=== PATIENT | male | born 1955 | race Caucasian/White ===

== ENCOUNTER 2024-08-07 18:50 | Inpatient (IN) | payer MEDICARE, MEDICAID ==
[~2024-08-07] VITALS: Ht 167.6 cm; Wt 87.0 kg
[2024-08-07 19:22] LABS: Basophils # (auto) 0 10 ^3/uL (0-0.2); Basophils % (auto) 0.6 % (0.0-2.0); Eosinophils # (auto) 0.6 10 ^3/uL (0-0.8); Eosinophils % (auto) 8.2 % (0.0-7.0); Hematocrit 47.7 % (41.0-53.0); Hemoglobin 16.1 g/dL (13.5-17.5); Lymphocytes # (auto) 2.5 10 ^3/uL (0.4-5.4); Lymphocytes % (auto) 36.8 % (10.0-50.0); Mean Corpuscular Hemoglobin 28.9 pg (28.0-32.0); Mean Corpuscular Hgb Conc. 33.9 g/dL (32.0-36.0); Mean Corpuscular Volume 85.3 fL (80.0-100.0); Monocytes # (auto) 0.6 10 ^3/uL (0-1.3); Monocytes % (auto) 9.1 % (0.0-12.0); Neutrophils # (auto) 3.1 10 ^3/uL (1.6-8.6); Neutrophils % (auto) 45.3 % (37.0-80.0); Nucleated Red Blood Cells % 0.1 %; Platelet Count (auto) 283 10^3/uL (140-450); Red Blood Cells 5.59 10^6/uL (4.5-5.90); Red Cell Distribution Width 13.2 % (11.8-14.3); White Blood Cell 6.8 10^3/uL (4.4-10.8)
--- NOTE | 2024-08-07 19:34 | DVH ---
CHEST RADIOGRAPH Indication: CHEST PAIN Technique: Single frontal view of the chest was obtained Comparison: None FINDINGS: Lines and Tubes: None Lungs: Clear Pleura: No effusion. No pneumothorax. Cardiomediastinal contours: Unremarkable Bones: Unremarkable IMPRESSION: 1. Clear lungs.
[2024-08-07 19:36] LABS: Albumin 4.8 g/dL (3.2-4.8); Alkaline Phosphatase 102 U/L (46-116); Anion Gap 6 (5-15); Aspartate Aminotransferase 25 U/L (13-40); BUN/Creatinine Ratio 14.8 (10.0-20.0); Blood Urea Nitrogen 13 mg/dL (9-23); Carbon Dioxide 30 mmol/L (20-31); Chloride 102 mmol/L (98-107); Sodium 138 mmol/L (136-145)
[2024-08-07 19:37] LABS: Bilirubin, Total 0.5 mg/dL (0.2-1.0); Total Protein 7.3 g/dL (5.7-8.2)
[2024-08-07 19:47] LABS: Alanine Aminotransferase 46 U/L (7-40); Calcium 10.5 mg/dL (8.7-10.4); Glucose 119 mg/dL (74-106)
--- NOTE | 2024-08-07 20:30 | ED.PDOC ---
HPI Comments 69-year-old male with a history of hypertension, diabetes and dyslipidemia presents to ER for chest pain. Patient states for the past few hours he has been having intermittent episodes of retrosternal chest pain, described as squeezing, unprovoked, non radiating associated with nausea. Denies any vomiting, shortness of breath. Patient denies any chest pain the time of my evaluation. Blood pressure upon arrival was 167/96 mmHg. Chief Complaint: Chest Pain Time Seen by MD: 20:29 Reviewed Notes: Nurses Notes Information Source: Patient Mode of Arrival: Ambulatory Severity: Moderate Timing: Hours Duration: Intermittent Prehospital treatment: None Location: Substernal Radiation: No Radiation Quality: Squeezing Onset: With Light Exertion Cardiac Risk Factors: Hyperlipidemia, HTN, Diabetes PE Risk Factors: None History of: None Modifying Factors: Nothing Associated Signs and Symptoms: N/V Past Medical History PAST MEDICAL HISTORY: DM, High Lipids, HTN, PUD Surgical History: Cholecystectomy Family History Family History: Reviewed,noncontributory to illness Social History Smoker: Non-Smoker Alcohol: Denies ETOH Use Drugs: Denies Drug Use Lives In: Home Constitutional: denies: chills, diaphoresis, fatigue, fever, malaise, sweats, weakness, others EENTM: denies: blurred vision, double vision, ear bleeding, ear discharge, ear drainage, ear pain, ear ringing, eye pain, eye redness, hearing loss, mouth pain, mouth swelling, nasal discharge, nose bleeding, nose congestion, nose pain, photophobia, tearing, throat pain, throat swelling, voice changes, others Respiratory: denies: cough, hemoptysis, orthopnea, SOB at rest, shortness of breath, SOB with excertion, stridor, wheezing, others Cardiovascular: reports: chest pain; denies: dizzy spells, diaphoresis, Dyspnea on exertion, edema, irregular heart beat, left arm pain, lightheadedness, palpitations, PND, syncope, others Gastrointestinal: reports: nausea; denies: abdomen distended, abdominal pain, blood streaked bowels, constipated, diarrhea, dysphagia, difficulty swallowing, hematemesis, melena, poor appetite, poor fluid intake, rectal bleeding, rectal pain, vomiting, others Genitourinary: denies: burning, dysuria, flank pain, frequency, hematuria, incontinence, penile discharge, penile sore, pain, testicle pain, testicle swelling, urgency, others Neurological: denies: dizziness, fainting, headache, left sided numbness, left sided weakness, numbness, paresthesia, pre-existing deficit, right sided numbness, right sided weakness, seizure, speech problems, tingling, tremors, weakness, others Musculoskeletal: denies: back pain, gout, joint pain, joint swelling, muscle pain, muscle stiffness, neck pain, others Integumetry: denies: bruises, change in color, change in hair/nails, dryness, laceration, lesions, lumps, rash, wounds, others Allergic/Immunocompromised: denies: Difficulty Healing, Frequent Infections, Hives, Itching, others Hematologic/Lymphatic: denies: anemia, blood clots, easy bleeding, easy bruising, swollen glands, others Endocrine: denies: excessive hunger, excessive sweating, excessive thirst, excessive urination, flushing, intolerance to cold, intolerance to heat, unexp lained weight gain, unexplained weight loss, others Psychiatric: denies: anxiety, bipolar disorder, depression, hopeless, panic disorder, schizophrenia, sleepless, suicidal, others Physical Exam General Appearance: No Apparent Distress HEENT: Other (Unremarkable) Neck: Full Range of Motion, Normal Inspection Respiratory: Lungs Clear, No Accessory Muscle Use, No Respiratory Distress, Normal Breath Sounds Cardiovascular: No Edema, No JVD, Regular Rate/Rhythm Breast Exam: Deferred Gastrointestinal: Non Tender, Soft Genitalia: Deferred Pelvic: Deferred Rectal: Deferred Extremities: Normal inspection, Normal range of motion, Non-tender, No pedal edema Neurologic: Alert (Oriented x4), Normal Affect, Normal Mood, Other (Ambulatory without difficulty. 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 Was a procedure done?: No CP Differential Dx Differential Diagnosis: Angina, Anxiety / Panic Attack, MS, Pulmonary Embolus Differential Diagnosis: HTN Essential Differential Diagnosis: Angina, Chest Wall Pain, Costochondritis, Esophageal reflux/spasm, Gastritis, Myocardial Infarction, Pneumonia X-Ray, Labs, Meds, VS Vital Signs Date Time Temp Pulse Resp B/P (MAP) Pulse Ox O2 Delivery O2 Flow Rate FiO2 08/07/24 19:56 74 08/07/24 19:04 98.3 86 16 167/96 (119) 96 08/07/24 18:55 82 Lab Test 08/07/24 21:42 08/07/24 19:41 08/07/24 19:00 Range/Units Troponin I High Sensitivity < 3 L < 3 L < 3 L </=54 ng/L White Blood Count 6.8 4.4-10.8 10^3/uL Red Blood Count 5.59 4.5-5.90 10^6/uL Hemoglobin 16.1 13.5-17.5 g/dL Hematocrit 47.7 41.0-53.0 % Mean Corpuscular Volume 85.3 80.0-100.0 fL Mean Corpuscular Hemoglobin 28.9 28.0-32.0 pg Mean Corpuscular Hemoglobin Concent 33.9 32.0-36.0 g/dL Red Cell Distribution Width 13.2 11.8-14.3 % Platelet Count 283 140-450 10^3/uL Mean Platelet Volume 7.7 6.9-10.8 fL Neutrophils (%) (Auto) 45.3 37.0-80.0 % Lymphocytes (%) (Auto) 36.8 10.0-50.0 % Monocytes (%) (Auto) 9.1 0.0-12.0 % Eosinophils (%) (Auto) 8.2 H 0.0-7.0 % Basophils (%) (Auto) 0.6 0.0-2.0 % Neutrophils # (Auto) 3.1 1.6-8.6 10 ^3/uL Lymphocytes # (Auto) 2.5 0.4-5.4 10 ^3/uL Monocytes # (Auto) 0.6 0-1.3 10 ^3/uL Eosinophils # (Auto) 0.6 0-0.8 10 ^3/uL Basophils # (Auto) 0 0-0.2 10 ^3/uL Nucleated Red Blood Cells 0.1 % Sodium Level 138 136-145 mmol/L Potassium Level 4.0 3.5-5.1 mmol/L Chloride Level 102 98-107 mmol/L Carbon Dioxide Level 30 20-31 mmol/L Anion Gap 6 5-15 Blood Urea Nitrogen 13 9-23 mg/dL Creatinine 0.88 0.700-1.30 mg/dL Glomerular Filtration Rate Calc 93 >90 mL/min BUN/Creatinine Ratio 14.8 10.0-20.0 Serum Glucose 119 H 74-106 mg/dL Calcium Level 10.5 H 8.7-10.4 mg/dL Total Bilirubin 0.5 0.2-1.0 mg/dL Aspartate Amino Transferase (AST) 25 13-40 U/L Alanine Aminotransferase (ALT) 46 H 7-40 U/L Alkaline Phosphatase 102 46-116 U/L B-Type Natriuretic Peptide 4.57 0-100 pg/mL Total Protein 7.3 5.7-8.2 g/dL Albumin 4.8 3.2-4.8 g/dL Current Medications Medications (Trade) Dose Ordered Sig/Aguilar Route Start Time Stop Time Status Last Admin Aspirin 325 mg ONCE ONCE PO 08/07/24 20:30 08/07/24 20:31 DC 08/07/24 21:38 Famotidine (Pepcid Tablet) 20 mg ONCE ONCE PO 08/07/24 20:30 08/07/24 20:31 DC 08/07/24 21:38 CHEST RADIOGRAPH Indication: CHEST PAIN Technique: Single frontal view of the chest was obtained Comparison: None FINDINGS: Lines and Tubes: None Lungs: Clear Pleura: No effusion. No pneumothorax. Cardiomediastinal contours: Unremarkable Bones: Unremarkable IMPRESSION: 1. Clear lungs. X-Ray, Labs, Meds, VS Comment 69-year-old male with a history of hypertension, diabetes and dyslipidemia presenting with chest pain Vitals remarkable for BP 167/96 Exam unremarkable Rhythm strip independently interpreted by me: Sinus rhythm, rate 74, normal FL interval, prolonged QRS interval, normal QTC interval, normal axis, old inferior infarct, nonspecific T changes EKG sinus rhythm, right bundle and left posterior fascicular block, nonspecific changes Chest x-ray no acute disease CBC, CMP, BNP and serial troponins unremarkable Patient treated with the following in the ED: Aspirin 325 mg p.o. Patient not acutely having chest pain on re-evaluation, but did state he was intermittently having pain during his stay in the ED. Heart score 7, plan will be to admit the patient for observation and Cardiology evaluation. 0211 patient had already been admitted to the hospital. He stated he did not want to stay due to the lack of an available bed. Patient was seated in a chair. Patient was advised regarding the risks of leaving prior to completion of evaluation and treatment including persistent or worsening symptoms, permanent disability or . He expressed understanding and stated he would prefer to go home and follow-up with a wheat shipper as an outpatient. He was alert, oriented x4 and capable of making informed decisions at the time he signed out against medical advice. Time of 1ST Reevaluation: 20:25 Reevaluation 1ST: Unchanged Time of 2ND Reevaluation: 22:31 Reevaluation 2ND: Unchanged Patient Education/Counseling: Diagnosis, Treatment Family Education/Counseling: No Family Present Departure 1 Departure Time of Disposition: 22:31 Impression: Primary Impression: Chest pain with high risk of acute coronary syndrome Disposition: 09 ADMITTED INPATIENT Admit to: [facility] Condition: Guarded Critical Care Note Critical Care Time?: No Stability Stability form required: No Heart Score Heart Score: Heart Score Response (Comments) Value History Highly Suspicious 2 EKG Repolarization Disturb 1 Age >65 2 Risk Factors >3 or Hx ASHD 2 Troponin Normal limit 0 Total 7 I personally scribed for LISSET BRUNO MD ([email or web address]) on 08/07/24 at 20:30. Electronically submitted by Austen Tobar ([facility]). LISSET BRUNO MD Aug 07, 2024 20:30
[2024-08-07] MEDS: ASPirin 325 MG TAB PO ONE (21:38)
[2024-08-07] MEDS: FAMOTIDINE 20 MG TAB PO ONE (21:38)
[2024-08-07] MEDS ORDERED: ONDANSETRON HCL 4 MG/2 ML VIAL IV PRN (23:45)
[2024-08-07] MEDS ORDERED: DEXTROSE (50%) 50ML SYRG IV PRN (23:45)
[2024-08-07] MEDS ORDERED: DOCUSATE SOD 100 MG CAP PO PRN (23:45)
[2024-08-07] MEDS ORDERED: hydrALAZINE HCL 20 MG/ML VL IV PRN (23:45)
[2024-08-07] MEDS ORDERED: SODIUM CHLORIDE 0.9% 1,000 ML IV SCH (23:45)
[2024-08-07] MEDS ORDERED: ACETAMINOPHEN 325 MG TAB PO PRN (23:45)
[2024-08-07] MEDS ORDERED: HYDROcodone-ACET 5/325MG TAB PO PRN (23:45)
--- NOTE | 2024-08-08 00:12 | DVHHP2 ---
History of Present Illness Reason for Visit: Acute chest pain History of Present Illness The patient is a 69-year-old male with past medical history of DM, hyperlipidemia, PUD, and hypertension who presented to [facility] ED with complaint of chest pain. Patient reports having intermittent episodes of substernal chest pain, described as squeezing sensation, nonradiating, associated nausea getting worse that prompted this visit. Patient was seen and evaluated in the ED, laboratory data shows WBC 6.8, platelets 283, sodium 138, potassium 4.0, BUN 13, creatinine 0.88, GFR 93, troponin < 3, glucose 119, BNP 4.57, AST 25, ALT 46, blood pressure 167/96, heart rate 74, temperature 98.3 F, O2 saturation 96% on room air. Chest x-ray show no acute disease. Patient was given aspirin 325 mg p.o. x1, please see medication orders section in the computer. On my assessment, patient denied chest pain at this moment, no headache, no dizziness, no diaphoresis, no palpitation, no shortness of breaths, no nausea, no vomiting, no fever, no chills. Patient was admitted for further evaluation and medical management. Past Medical History DM, High Lipids, HTN, PUD Past Surgical History Cholecystectomy Family History Reviewed, noncontributory to the management of this case. Past Social History The patient lives at home, denies smoking, alcohol or illicit drugs abuse. Review of Systems Constitutional: No: Fever, Chills, Sweats, Weakness, Malaise, Other Eyes: No: Pain, Vision change, Conjunctivae inflammation, Eyelid inflammation, Other, Redness ENT: No: Ear pain, Ear discharge, Nose pain, Nose discharge, Nose congestion, Mouth pain, Mouth swelling, Throat pain, Throat swelling, Other Respiratory: No: Cough, Dry, Shortness of breath, SOB with excertion, Wheezing, Hemoptysis, Pleuritic Pain, Sputum, Wheezing, Other Cardiovascular: Chest Pain; No: Palpitations, Orthopnea, Paroxysmal Noc. Dyspnea, Edema, Lt Headedness, Other Gastrointestinal: Nausea; No: Vomiting, Abdominal Pain, Diarrhea, Constipation, Melena, Hematochezia, Other Genitourinary: No Dysuria, No Frequency, No Incontinence, No Hematuria, No Ret ention, No Other Musculoskeletal: No: other, neck pain, shoulder pain, arm pain, back pain, hand pain, leg pain, foot pain Skin: No: Rash, Lesions, Jaundice, Bruising, Other Neurological: No: Weakness, Numbness, Incoordination, Change in speech, Confusion, Seizures, Other Medications Current Medications Medications Dose Ordered Sig/Aguilar Route Start Time Stop Time Status Last Admin Dose Admin Aspirin 81 mg DAILY PO 08/08/24 10:00 UNV Hydralazine HCl 10 mg Q6HP PRN IV 08/07/24 23:45 UNV Diagnostic Test (Pha) 1 strip ACHS 08/08/24 07:00 UNV Insulin Human Regular ACHS SC 08/08/24 07:00 UNV Dextrose 50 ml UD PRN IV 08/07/24 23:45 UNV Sodium Chloride 1,000 ml @ 60 mls/hr [id number] IV 08/07/24 23:45 UNV Acetaminophen/ Hydrocodone Bitart 1 tab Q4HP PRN PO 08/07/24 23:45 UNV Ondansetron HCl 4 mg Q4HP PRN IV 08/07/24 23:45 UNV Docusate Sodium 100 mg BIDPRN PRN PO 08/07/24 23:45 UNV Acetaminophen 650 mg Q6HP PRN PO 08/07/24 23:45 UNV Atorvastatin Calcium 20 mg HS PO 08/08/24 22:00 UNV Famotidine 20 mg DAILY IV 08/08/24 10:00 UNV Exam Vital Signs Vital Signs Date Time Temp Pulse Resp B/P (MAP) Pulse Ox O2 Delivery O2 Flow Rate FiO2 08/07/24 19:56 74 08/07/24 19:04 98.3 16 167/96 (119) 96 General Appearance: Alert, Oriented X3, Cooperative, No acute distress HEENT: Atraumatic, PERRLA, EOMI, Mucous membr. moist/pink Respiratory: Clear to auscultation, Normal air movement Cardiovascular: Regular rate, Normal S1, Normal S2, No murmurs Abdominal: Normal bowel sounds, Soft, No tenderness, No hepatospenomegaly, No masses Extremities: No clubbing, No cyanosis, No edema, Normal pulses, No tenderness/swelling Skin: No rashes, No breakdown, No significant lesion Neuro: Normal gait, Normal speech, Strength at 5/5 X4 ext, Normal tone, Sensation intact, Cranial nerves 3-12 NL, Reflexes 2+ Psych/Mental Status: Mental status NL, Mood NL Labs/Xrays Labs Test 08/07/24 21:42 08/07/24 19:00 Range/Units Troponin I High Sensitivity < 3 L </=54 ng/L White Blood Count 6.8 4.4-10.8 10^3/uL Red Blood Count 5.59 4.5-5.90 10^6/uL Hemoglobin 16.1 13.5-17.5 g/dL Hematocrit 47.7 41.0-53.0 % Mean Corpuscular Volume 85.3 80.0-100.0 fL Mean Corpuscular Hemoglobin 28.9 28.0-32.0 pg Mean Corpuscular Hemoglobin Concent 33.9 32.0-36.0 g/dL Red Cell Distribution Width 13.2 11.8-14.3 % Platelet Count 283 140-450 10^3/uL Mean Platelet Volume 7.7 6.9-10.8 fL Neutrophils (%) (Auto) 45.3 37.0-80.0 % Lymphocytes (%) (Auto) 36.8 10.0-50.0 % Monocytes (%) (Auto) 9.1 0.0-12.0 % Eosinophils (%) (Auto) 8.2 H 0.0-7.0 % Basophils (%) (Auto) 0.6 0.0-2.0 % Neutrophils # (Auto) 3.1 1.6-8.6 10 ^3/uL Lymphocytes # (Auto) 2.5 0.4-5.4 10 ^3/uL Monocytes # (Auto) 0.6 0-1.3 10 ^3/uL Eosinophils # (Auto) 0.6 0-0.8 10 ^3/uL Basophils # (Auto) 0 0-0.2 10 ^3/uL Nucleated Red Blood Cells 0.1 % Sodium Level 138 136-145 mmol/L Potassium Level 4.0 3.5-5.1 mmol/L Chloride Level 102 98-107 mmol/L Carbon Dioxide Level 30 20-31 mmol/L Anion Gap 6 5-15 Blood Urea Nitrogen 13 9-23 mg/dL Creatinine 0.88 0.700-1.30 mg/dL Glomerular Filtration Rate Calc 93 >90 mL/min BUN/Creatinine Ratio 14.8 10.0-20.0 Serum Glucose 119 H 74-106 mg/dL Calcium Level 10.5 H 8.7-10.4 mg/dL Total Bilirubin 0.5 0.2-1.0 mg/dL Aspartate Amino Transferase (AST) 25 13-40 U/L Alanine Aminotransferase (ALT) 46 H 7-40 U/L Alkaline Phosphatase 102 46-116 U/L B-Type Natriuretic Peptide 4.57 0-100 pg/mL Total Protein 7.3 5.7-8.2 g/dL Albumin 4.8 3.2-4.8 g/dL PATIENT: DENA CLOUD ACCT: [id number] UNIT: [id number] : 1955 LOC: ER ROOM / BED: / AGE / SEX: 69 / M ADM STATUS: REG ER SERVICE 54 ORDERING PHYSICIAN: LISSET BRUNO MD PROCEDURE(s): CXRP - CHEST PORTABLE REASON: CHEST PAIN ORDER NUMBER(s): [id number], ACCESSION NUMBER(s): [id number] CHEST RADIOGRAPH Indication: CHEST PAIN Technique: Single frontal view of the chest was obtained Comparison: None FINDINGS: Lines and Tubes: None Lungs: Clear Pleura: No effusion. No pneumothorax. Cardiomediastinal contours: Unremarkable Bones: Unremarkable IMPRESSION: 1. Clear lungs. Assessment/Plan Assessment/Plan Acute chest pain Hypertensive urgency Plan 1. Admit to telemetry unit 2. Breathing treatment 3. Pain control management 4. Management of fluids and electrolytes 5. Consultation for hospitalist 6. Diagnostic tests-chest x-ray 7. DVT prophylaxis -on aspirin 8. Repeat labs CBC, CMP in a.m. 9. Continue with current medical management 10. Treatment plan discussed with patient and RN. Patient verbalized understanding. Plan discussed with: Patient, Other (RN) My Orders Orders - MILLA HOGAN DNP Procedure Category Date Status Time Aspirin Tablet PHA 08/08/24 Logged 10:00 Hydralazine Injection PHA 08/07/24 Logged (Apresoline Inject 23:45 Glucose Blood PHA 08/08/24 Logged (Accu-Chek Comfort 07:00 Insulin R (Human) PHA 08/08/24 Logged (Insulin R) 07:00 Dextrose 50% Syringe PHA 08/07/24 Logged 23:45 Allergies BOB 08/07/24 In Process 23:32 Code Status CODE 08/07/24 Transmitted 23:32 Sodium Chloride 0.9% PHA 08/07/24 Logged 23:45 Oxygen Per Hour RT 08/07/24 Transmitted 23:32 Hydrocodone-Acet PHA 08/07/24 Logged 5/325mg Tab ([place] 23:45 Ondansetron Hcl PHA 08/07/24 Logged (Zofran) 23:45 Docusate Sodium PHA 08/07/24 Logged Capsule (Colace 23:45 Complete Blood Count LAB 08/08/24 Logged 04:00 Comprehensive LAB 08/08/24 Logged Metabolic Panel 04:00 Cardiac DIET 08/08/24 Transmitted Diet-2gna,Lofat,Lochol Breakfast Condition: Serious BOB 08/07/24 In Process 23:32 Acetaminophen Tablet PHA 08/07/24 Logged (Tylenol Tablet) 23:45 Bedrest With Bathroom BOB 08/07/24 In Process Privileg 23:32 Sequential BOB 08/07/24 In Process Compression Device Atorvastatin (Lipitor) PHA 08/08/24 Logged 22:00 Famotidine Injection [facility] 08/08/24 Logged (Pepcid Injection) 10:00 Admit ADMIT 08/08/24 Transmitted 00:11 Nitroglycerin [facility] 08/08/24 Transmitted Sublingual (Ntrostat 00:15 Morphine Sulfate PHA 08/08/24 Transmitted Injection 00:15 Notify Of Changes [facility] 08/08/24 Transmitted From Base 00:11 Shoes Hand Sewer For [facility] 08/08/24 Transmitted 24 Hours 00:11 Emergency Dysrhythmia [facility] 08/08/24 Transmitted Protocol 00:11 Rhythm Strips Once [facility] 08/08/24 Transmitted Every Shift 00:11 Oxygen By Nasal RT 08/08/24 Transmitted Cannula 00:11 Problem List: (1) Acute chest pain (2) Hypertensive urgency Date of Service: Aug 07, 2024 Billing Provider: MILLA HOGAN DNP Common Visit Codes: 14507-ADIRRQS INP/OBS CARE (HIGH) MILLA HOGAN DNP Aug 08, 2024 00:12
[2024-08-08] MEDS ORDERED: NITROGLYCERIN 0.4 MG SL TAB SL PRN (00:15)
[2024-08-08] MEDS ORDERED: MORPHINE SULFATE INJ 2 MG/ml SYRG IV PRN (00:15)
[2024-08-08 00:30] VITALS: BP 144/88; PULSE 67; RESP 16; TEMP 98.1; O2SAT 98
[2024-08-08] MEDS ORDERED: InsuLIN REG 1unit/0.01ml Soln (100units/ml) SC SCH (07:00)
[2024-08-08] MEDS ORDERED: ACCU-CHEK COMFORT CURVE STRIP VI SCH (07:00)
[2024-08-08] MEDS ORDERED: FAMOTIDINE (10MG/ML) 2ML VL IV SCH (10:00)
[2024-08-08] MEDS ORDERED: ASPirin 81 mg TAB PO SCH (10:00)
--- NOTE | 2024-08-08 20:56 | DVHDSRES ---
Discharge Summary Date of Admission Resident Creating Document: ANTOINETTE HAMPTON Aug 08, 2024 at 00:11 Date of Discharge: Aug 08, 2024 Labs/Diagnostic Data: Laboratory Results Test 08/07/24 21:42 08/07/24 19:00 Troponin I High Sensitivity < 3 ng/L (</=54) White Blood Count 6.8 10^3/uL (4.4-10.8) Red Blood Count 5.59 10^6/uL (4.5-5.90) Hemoglobin 16.1 g/dL (13.5-17.5) Hematocrit 47.7 % (41.0-53.0) Mean Corpuscular Volume 85.3 fL (80.0-100.0) Mean Corpuscular Hemoglobin 28.9 pg (28.0-32.0) Mean Corpuscular Hemoglobin Concent 33.9 g/dL (32.0-36.0) Red Cell Distribution Width 13.2 % (11.8-14.3) Platelet Count 283 10^3/uL (140-450) Mean Platelet Volume 7.7 fL (6.9-10.8) Neutrophils (%) (Auto) 45.3 % (37.0-80.0) Lymphocytes (%) (Auto) 36.8 % (10.0-50.0) Monocytes (%) (Auto) 9.1 % (0.0-12.0) Eosinophils (%) (Auto) 8.2 % (0.0-7.0) Basophils (%) (Auto) 0.6 % (0.0-2.0) Neutrophils # (Auto) 3.1 10 ^3/uL (1.6-8.6) Lymphocytes # (Auto) 2.5 10 ^3/uL (0.4-5.4) Monocytes # (Auto) 0.6 10 ^3/uL (0-1.3) Eosinophils # (Auto) 0.6 10 ^3/uL (0-0.8) Basophils # (Auto) 0 10 ^3/uL (0-0.2) Nucleated Red Blood Cells 0.1 % Sodium Level 138 mmol/L (136-145) Potassium Level 4.0 mmol/L (3.5-5.1) Chloride Level 102 mmol/L (98-107) Carbon Dioxide Level 30 mmol/L (20-31) Anion Gap 6 (5-15) Blood Urea Nitrogen 13 mg/dL (9-23) Creatinine 0.88 mg/dL (0.700-1.30) Glomerular Filtration Rate Calc 93 mL/min (>90) BUN/Creatinine Ratio 14.8 (10.0-20.0) Serum Glucose 119 mg/dL (74-106) Calcium Level 10.5 mg/dL (8.7-10.4) Total Bilirubin 0.5 mg/dL (0.2-1.0) Aspartate Amino Transferase (AST) 25 U/L (13-40) Alanine Aminotransferase (ALT) 46 U/L (7-40) Alkaline Phosphatase 102 U/L (46-116) B-Type Natriuretic Peptide 4.57 pg/mL (0-100) Total Protein 7.3 g/dL (5.7-8.2) Albumin 4.8 g/dL (3.2-4.8) Other Laboratory Tests 08/07/24 19:00 Brief Hx & Hospital Course: As per the hospitalist history, this is a 69-year-old male with past medical history of DM, hyperlipidemia, PUD, and hypertension who presented to [facility] ED with complaint of chest pain. Patient reports having intermittent episodes of substernal chest pain, described as squeezing sensation, nonradiating, associated nausea getting worse that prompted this visit. Patient was given aspirin 325 mg, famotidine 20 mg. EKG on transfer ordered. The patient was started on sliding scale insulin for management for diabetes in the hospital. Patient left AMA before being seen by the hospitalist. Condition at Discharge: Undetermined (Left AMA) Final Diagnosis/Problems List Undetermined, patient left AMA Secondary Diagnosis: Chest pain Diabetes mellitus Hyperlipidemia Peptic ulcer disease Hypertension Discharge Disposition: AMA Discharge Instruct/Medications Diet: See Comment Diet comment: Left AMA Activity: See Comment Activity comment: Left AMA Follow Up/Referral: Patient left AMA Medications: Left AMA Discharge Statement: "Patient was advised to return to the ER or call 911 if any headaches, dizziness, shortness of breath, chest pain, abdominal pain, bleeding, fevers, or worsening of medical condition. Patient was counseled about treatment plan, medications, possible side effects, patientverbalized understanding. All questions were answered to the best of my ability. This discharge took greater then 30 minutes in planning, reviewing documentation, counseling the patient, and discussing with other team members." ASSESSMENT ASSESSMENT Assessment Addendum Addendum Addendum I was physically present for the moran portions of the service provided to patient by THE RESIDENT. I have reviewed the documentation, discussed the case with resident and agree with the resident's documentation except as noted. Also the patient's clinical case was discussed with the patient's nurse. This medical document was created using an electronic medical record system with computerized dictation system. Although this document has been carefully reviewed, there might still be some phonetic and typographical errors. These areas are purely typographical due to imperfections of the software programs, and do not reflect any compromise in the patient's medical care. Late signature. Date of Service: Aug 08, 2024 Billing Provider: ISIDRO KAMARA MD Common Visit Codes: 82655-EMD/OBS DISCH DAY >30min ANTOINETTE HAMPTON RESIDENT Aug 08, 2024 20:56 ISIDRO KAMARA MD Aug 10, 2024 09:50
[2024-08-08] MEDS ORDERED: ATORVASTATIN 20 MG TAB PO SCH (22:00)
--- NOTE | 2024-08-10 14:04 | ECG ---
[facility] Test Date: 2024-08-07 Test Time: 18:55:27 Pat Name: DENA CLOUD Department: er Room: [address] [place] [address] Gender: M Nursing Program Manager: meseret : 1955 Requested By: LISSET ARANDA Order Number: [id number] Reading MD: Measurements Intervals [place] Rate: 82 P: 25 DC: 165 QRS: 173 QRSD: 140 T: 21 QT: 376 QTc: 439 Interpretive Statements Sinus rhythm RBBB and LPFB Inferior infarct, old Lateral leads are also involved Please click the below link to view image of tracing.
== END 2024-08-08 02:16 | disposition left against medical advice (07) | DRG 305 ==
LOC: ER 18:50 → TELE 08-08 00:11
PROVIDERS: ADMIT Nurse Practitioner Family; ATTEND Nurse Practitioner Family
DX: I16.0 Hypertensive urgency (principal); E11.9 Type 2 diabetes mellitus without complications; E78.5 Hyperlipidemia, unspecified; Z53.29 Procedure and treatment not carried out because of patient's decision for other reasons; Z90.49 Acquired absence of other specified parts of digestive tract; Z87.11 Personal history of peptic ulcer disease
CPT/HCPCS: 36415; 71045; 80053; 83880; 84484; 85025; G0378